=== PATIENT | male | born 1980 | race Caucasian/White ===

== ENCOUNTER 2017-04-02 17:17 | Emergency (ER) | payer MEDICAID, SELFPAY | END 2017-04-02 18:05 | disposition home or self-care (01) | LOC: MADERS 17:17 | DX: I10 Essential (primary) hypertension (principal); G44.209 Tension-type headache, unspecified, not intractable; F17.210 Nicotine dependence, cigarettes, uncomplicated; Z79.899 Other long term (current) drug therapy | CPT/HCPCS: 99282 ==

== ENCOUNTER 2019-09-15 11:18 | Emergency (ER) | payer OTHER, SELFPAY ==
[~2019-09-15 11:18] MED LIST: Iopamidol 370 76% 100 ML VIAL ONE
[2019-09-15] MEDS ORDERED: Ketorolac Tromethamine 60 MG/2 ML VIAL ONE (11:45)
[2019-09-15] MEDS ORDERED: Morphine 4 MG/ML VIAL ONE (11:45)
[2019-09-15 13:07] LABS: Band 2 % (5-11); Eosinophils 3 % (0-10); Hemoglobin 15.5 g/dL (14.0-18.0); Lymphocytes 26 % (21-51); MDiff Complete? YES; Mean Corpuscular HGB CONC 32.3 g/dL (32.0-36.0); Mean Corpuscular Hemoglobin 30.4 pg (27.0-31.0); Mean Corpuscular Volume 94.2 fL (78.0-98.0); Mean Platelet Volume 7.7 fL (7.4-10.4); Monocytes 9 % (0-10); Neutrophil 60 % (42-75); Platelet Count 297 thou/uL (130-400); RBC Distribution Width 11.5 % (11.5-14.5); Red Blood Cell (RBC) Count 5.09 mill/uL (4.70-6.10); White Blood Cell (WBC) Count 8.9 thou/uL (4.8-10.8)
[2019-09-15 13:18] LABS: ALT (SGPT) 35 U/L (8-55); AST (SGOT) 28 U/L (5-34); Albumin 4.3 g/dL (3.5-5.0); Alkaline Phosphatase 61 U/L (40-110); Anion Gap 16 mmol/L (10-20); BUN (Urea Nitrogen) 13 mg/dL (8.9-20.6); Bilirubin, Total 0.4 mg/dL (0.2-1.2); Calc. Creatinine Clearance 0 mL/min (70-130); Calcium 9.1 mg/dL (7.8-10.44); Carbon Dioxide 20 mmol/L (22-29); Chloride 106 mmol/L (98-107); Estimated GFR-MDRD Greater than 90; Globulin 3.2 g/dL (2.4-3.5); Glucose 86 mg/dL (70-105); Potassium 4.9 mmol/L (3.5-5.1); Protein, Total 7.5 g/dL (6.0-8.3); Sodium 137 mmol/L (136-145)
--- NOTE | 2019-09-15 13:19 | ULT ---
TESTICULAR ULTRASOUND: Date: 09/15/2019 HISTORY: Inguinal swelling and pain. COMPARISON: None. FINDINGS: Real-time Robles scale with color Doppler and spectral analysis of the testicles performed. Testicular echotexture is normal. No mass. Normal flow to both testicles. No hypervascularity or hypo vascularity. Epididymides normal. IMPRESSION: Normal testicular exam. POS: [facility]
[2019-09-15 13:30] LABS: Bilirubin Negative (Negative); Blood, Urine Negative (Negative); Clarity Clear (Clear); Glucose, Urine (Dipstick) Negative (Negative); Leukocyte Negative (Negative); Nitrite Negative (Negative); Protein, Urine (Dipstick) Negative (Neg-Trace); Urobilinogen 0.2 mg/dL (Less than 2)
--- NOTE | 2019-09-15 15:25 | CT ---
ABDOMEN AND PELVIC CT SCAN WITH IV CONTRAST: HISTORY: Left inguinal and scrotal pain and swelling. History of bilateral testicular torsion. FINDINGS: The lung bases appear clear. Possible very small hiatal hernia. The visualized liver, gallbladder, pancreas, spleen, and adrenal glands are unremarkable. Tiny nonobstructing right renal calculus. No evidence for acute obstruction. No abscess, adenopathy, or abnormal fluid collection. Small fat -containing umbilical hernia. No evidence for inguinal hernia. Prominent right posterolateral disk- osteophyte at L5-S1 with severe right foraminal stenosis. IMPRESSION: Tiny nonobstructing right renal calculus, no evidence for acute obstruction. Small fat-containing umbilical hernia, no evidence for inguinal hernias. Right L5-S1 foraminal stenosis. POS: [facility]
[2019-09-15] MEDS ORDERED: Tamsulosin HCl 0.4 MG CAP ONE (15:43)
== END 2019-09-15 17:00 | disposition home or self-care (01) ==
LOC: MADERS 11:18
DX: N20.0 Calculus of kidney (principal); I10 Essential (primary) hypertension; F17.210 Nicotine dependence, cigarettes, uncomplicated
CPT/HCPCS: 36415; 74177; 76870; 80053; 81003; 83605; 85025; 93976; 96372; J1885; J2270; Q9967